=== PATIENT | female | born 1960 | race Caucasian/White ===

== ENCOUNTER → 2025-05-13 | Day surgery (SDC) | payer MEDICAID ==
[~2025-05-13] VITALS: Ht 152.4 cm; Wt 54.4 kg
[~2025-05-13] MED LIST: AMLO5TAB88 PO; ATOR20TA65 PO; BACITRACIN 14GM TUBE TOP ONE; BUPIVACAINE HCL/PF 0.25% (2.5MG/ML) 10ML ONE; BUPIVACAINE HCL/PF 0.5% (5MG/ML) 10ML ONE; CEFAZOLIN SODIUM 1000MG/VIAL ONE; CHOL200059 PO; DEXAMETHASONE 4MG/ML 1ML VIAL ONE; FENTANYL CITRATE/PF 50MCG/ML 2ML VIAL ONE; FURO40TA5 PO; HEPARIN SODIUM 1,000 UNIT/1ML VIAL IV ONE; HYDRALAZINE 20MG/ML VIAL IV PRN; HYDROMORPHONE HCL/PF 1MG/ML INJ IV PRN; INSASP SUBCUT; INSU100I24 SQ; LABETALOL 5MG/ML 4ML INJ IV PRN; LIDOCAINE HCL 1% 10 MG/ML 10ML VIAL ONE; MIDAZOLAM HCL 2 MG/2 ML VIAL ONE; ONDANSETRON HCL 4MG/2ML INJ IV PRN; POLYMYXIN B SULFATE 500000 UNITS/VIAL ONE; PROPOFOL 200MG/20ML VIAL IV ONE; RIFA550T PO; SENN-362 PO; SEVE800T8 PO; THIA100T88 PO; THROMBIN (BOVINE) 5000 UNITS/VIAL TOP ONE
[2025-05-13 11:25] LABS: BASOPHILS % 0.8 % (0.0-2.0); EOSINOPHILS % 6.5 % (0.0-5.0); HEMATOCRIT. 38.0 % (36.0-48.0); HEMOGLOBIN. 12.7 g/dL (12.0-16.0); LYMPHOCYTES % 33.0 % (20.0-50.0); MEAN PLATELET VOLUME 8.7 fl (7.4-10.4); MONOCYTES % 7.9 % (2.0-8.0); NEUTROPHILS % 51.8 % (40.0-76.0); PLATELET 136 x1000/uL (130-400); RED BLOOD CELL COUNT 4.28 mill/uL (4.2-5.4); RED CELL DISTRIBUTION WIDTH 16.1 % (11.6-14.6)
[2025-05-13 11:50] LABS: INR 1.0
[2025-05-13 12:19] LABS: CREATININE 3.5 mg/dL (0.6-1.0); UREA NITROGEN BLOOD 39.0 mg/dL (9-23)
== END | disposition home or self-care (01) ==
LOC: OR 10:22
PROVIDERS: ATTEND Student in an Organized Health Care Education/Training Program
DX: I12.0 Hypertensive chronic kidney disease with stage 5 chronic kidney disease or end stage renal disease (principal); E11.22 Type 2 diabetes mellitus with diabetic chronic kidney disease; N18.6 End stage renal disease; I26.99 Other pulmonary embolism without acute cor pulmonale; E78.5 Hyperlipidemia, unspecified; Z79.4 Long term (current) use of insulin; Z79.899 Other long term (current) drug therapy; Z98.890 Other specified postprocedural states; Z99.2 Dependence on renal dialysis
CPT/HCPCS: 36830; 80048; 82962; 85025; 85610; 85730; 36415; 93005; J3010; J3490 ×3; J0665; J0690; J1100; J1644; J2003; J2250; J2405; J2704; A4565; C1768